=== PATIENT | female | born 1940 | race African-American/Black ===

== ENCOUNTER 2017-03-07 14:06 | Emergency (ER) | payer OTHER ==
[~2017-03-07] VITALS: Ht 157.5 cm; Wt 72.1 kg
--- NOTE | ~2017-03-07 | EKG ---
[place] [address] [facility] [place] [address] ELECTROCARDIOGRAM REPORT Name: FRIEDA MESSINA Room #: [facility] Tobias#: [id number] Admission: 03/07/17 Attend Phys: Discharge: 03/07/17 Date of : 44 Report #: [id number] THIS REPORT FOR: //name// [facility] ED Test Date: 2017-03-07 Test Time: 14:39:50 Pat Name: FRIEDA MESSINA Department: Room: Gender: F [employer] Director: Shelton ARELLANO : 1940 Requested By: Everton Peter Order Number: [id number] MD: David Burgos Measurements Intervals [place] Rate: 88 P: 42 IA: 155 QRS: -42 QRSD: 76 T: -1 QT: 374 QTc: 453 Interpretive Statements Sinus rhythm Probable anterolateral infarct, old Compared to ECG 12/15/2013 00:26:23 No significant changes Electronically Signed On 03-08-2017 9:23:17 CDT by David Burgos [email or web address] <ELECTRONICALLY SIGNED> By: David Burgos MD, [facility] 03/08/17 0923 1439 1439 David Burgos MD, FACC /EPI
[~2017-03-07 14:06] MED LIST: ANTIVERT25 MG PO; BAYER CHEWABLE81 MG PO
[2017-03-07] MEDS ORDERED: CLARITIN10 MG PO (14:19)
[2017-03-07] MEDS ORDERED: ZYRTEC10 MG PO (14:20)
[2017-03-07 14:42] LABS: HEMATOCRIT 37.8 % (37.0-47.0); HEMOGLOBIN 12.9 gm/dL (12.0-15.0); MANUAL DIFF YES; MCH 30.6 pg (26.0-34.0); MCV 89.9 fL (80.0-100.0); PLATELET COUNT 312 thou/uL (150-400); RBC 4.21 mil/uL (4.20-5.00); RDW 14.4 % (10.5-14.5); WBC 7.2 thou/uL (4.0-11.0)
[2017-03-07 14:50] LABS: ANION GAP 8 mmol/L (7-16); BUN 12 mg/dL (7-18); CALCIUM 9.4 mg/dL (8.5-10.1); CHLORIDE 105 mmol/L (98-107); CO2 28 mmol/L (21-32); GLUCOSE 89 mg/dL (74-106); POTASSIUM 4.1 mmol/L (3.5-5.1); SODIUM 141 mmol/L (136-145)
[2017-03-07 15:03] LABS: ABSOLUTE NEUTROPHILS 3.2 thou/uL (1.4-8.2); NT-PRO BRAIN NAT PEPTIDE 24 pg/mL (<300); TOTAL CELL COUNT 100; TROPONIN-I < 0.04 ng/mL (<0.04-0.07)
[2017-03-07 17:45] VITALS: BP 140/85
== END 2017-03-07 20:57 | disposition home or self-care (01) ==
LOC: ER 14:06
PROVIDERS: Nurse Practitioner
DX: R06.02 Shortness of breath (principal); Z88.5 Allergy status to narcotic agent